=== PATIENT | male | born 1985 | race Two or more races ===

== ENCOUNTER → 2021-07-20 | Emergency (ER) | payer SELFPAY ==
[~2021-07-20] VITALS: Ht 170.2 cm; Wt 64.0 kg
[2021-07-20 12:06] VITALS: BP 143/85
== END | disposition home or self-care (01) ==
LOC: ER 12:01
DX: H53.8 Other visual disturbances (principal); H18.601 Keratoconus, unspecified, right eye
CPT/HCPCS: 99281